=== PATIENT | female | born 1965 | race Caucasian/White ===

== ENCOUNTER 2018-01-22 19:42 | Emergency (ER) | payer MEDICAID ==
[2013-07-30 15:02] VITALS: BMI 28.4
[~2018-01-22 19:42] MED LIST: NORCO 10/325 TA1 TA1
== END 2018-01-22 21:54 | disposition home or self-care (01) ==
LOC: D.ER 19:42
DX: K02.9 Dental caries, unspecified (principal); K08.89 Other specified disorders of teeth and supporting structures; K04.7 Periapical abscess without sinus

== ENCOUNTER 2018-12-11 19:00 | Outpatient (CLI) | payer MEDICAID ==
[2013-07-30 15:02] VITALS: BMI 28.4
== END 2018-12-11 23:59 | disposition home or self-care (01) ==
LOC: D.MAMMO 19:00
PROVIDERS: ATTEND General Practice
DX: Z12.31 Encounter for screening mammogram for malignant neoplasm of breast (principal)

== ENCOUNTER 2020-12-22 02:55 | Emergency (ER) | payer BC ==
[~2020-12-22] VITALS: Ht 160 cm; Wt 71.8 kg
[2020-12-22 02:59] VITALS: Ht 160 cm; Wt 71.8 kg
[2020-12-22 03:16] LABS: BASOPHILS 0.4 % (0-2); EOSINOPHILS 2.1 % (0-7); HEMATOCRIT 42.6 % (36.0-48.0); HEMOGLOBIN 14.6 g/dL (12-16); IMMATURE GRANULOCYTES 0.4 % (0-5); LYMPHOCYTE ABS# 2.07 10x3/uL (1.18-3.74); LYMPHOCYTES 27.6 % (15-50); MCHC 34.3 g/dL (31.0-37.0); MCV 84.7 fL (80.0-100.0); MEAN PLATELET VOLUME 10.5 fL (7.4-10.4); MONOCYTES 6.8 % (2-11); NEUTROPHIL ABS# 4.71 10x3/uL (1.56-6.13); NEUTROPHILS 62.7 % (40-80); RBC 5.03 10x6/uL (4.00-5.40); RDW 14.2 % (11.5-14.5); WBC 7.5 10x3/uL (4.8-10.8)
[2020-12-22 03:18] LABS: PLATELET COUNT 203 10x3/uL (130-400)
[2020-12-22 03:22] LABS: CALC OSMOLALITY 288 mosm/kg (275-300); CALCIUM 9.2 mg/dL (8.5-10.1); CARBON DIOXIDE 26.4 mmol/L (21.0-32.0); CHLORIDE - SERUM 102 mmol/L (98-107); POTASSIUM - SERUM 3.3 mmol/L (3.5-5.1); SODIUM 136 mmol/L (136-145); UREA NITROGEN 36 mg/dL (7-18); eGFR NON AFRICAN AMERICAN 28 mL/min (90-120)
[2020-12-22 03:24] LABS: APTT 28.4 SECONDS (22.8-39.4); INR 1.03 (0.85-1.17); PROTIME 12.5 SECONDS (11.6-15.0)
[2020-12-22 03:25] LABS: D-DIMER-QUANTITATIVE 0.38 ug/mLFEU (0.20-0.54); GLUCOSE 264 mg/dL (74-106)
[2020-12-22] MEDS ORDERED: REQUIP3 MG PO (03:26)
[2020-12-22] MEDS ORDERED: CYCLOBENZAPRINE5 MG PO (03:26)
[2020-12-22] MEDS ORDERED: COZAAR100 MG PO (03:26)
[2020-12-22] MEDS ORDERED: VOLTAREN25 MG PO (03:29)
[2020-12-22 03:37] LABS: ALBUMIN 3.7 g/dL (3.4-5.0); ALKALINE PHOSPHATASE 86 U/L (30-120); ALT (SGPT) 43 U/L (10-68); BILIRUBIN - TOTAL 0.53 mg/dL (0.2-1.3); CKMB 0.7 U/L (0.0-3.6); CREATINE KINASE 43 UL (21-215); MAGNESIUM - SERUM 2.2 mg/dL (1.8-2.4); PROTEIN - SERUM 6.7 g/dL (6.4-8.2)
[2020-12-22 03:38] LABS: TROPONIN-I < 0.017 ng/mL (0.000-0.060)
[2020-12-22] MEDS ORDERED: PEPCID40 MG PO (03:39)
[2020-12-22 03:54] LABS: UDS - AMPHET POSITIVE QUAL (NEGATIVE); UDS - BARB NEGATIVE QUAL (NEGATIVE); UDS - BENZO NEGATIVE QUAL (NEGATIVE); UDS - COCAINE NEGATIVE QUAL (NEGATIVE); UDS - OPIATE NEGATIVE QUAL (NEGATIVE); UDS - PCP NEGATIVE QUAL (NEGATIVE); UDS - THC NEGATIVE QUAL (NEGATIVE)
[2020-12-22 03:55] LABS: AMORPHOUS SEDIMENT >1+ LPF (NONE SEEN); BILIRUBIN 1+ (NEGATIVE); KETONE SMALL mg/dL (NEGATIVE); NITRITE NEGATIVE (NEGATIVE); UROBILINOGEN NORMAL mg/dL (< 2)
[2020-12-22 03:56] LABS: WHITE CELLS - URINE 0-5 HPF (0-4)
[2020-12-22 05:48] VITALS: BP 94/58
[2020-12-22] MEDS ORDERED: CARAFATE1 G PO (19:40)
[2020-12-22] MEDS ORDERED: BENTYL10 MG PO (19:40)
[2020-12-22] MEDS ORDERED: ZOFRAN ODT4 MG/UDTAB PO (19:40)
[2020-12-22] MEDS ORDERED: CHRONULAC30 ML PO (19:40)
== END 2020-12-22 05:48 | disposition home or self-care (01) ==
LOC: D.ER 02:55
PROVIDERS: Family Medicine
DX: R07.9 Chest pain, unspecified (principal); I10 Essential (primary) hypertension; N28.9 Disorder of kidney and ureter, unspecified; J44.9 Chronic obstructive pulmonary disease, unspecified

== ENCOUNTER 2020-12-22 16:49 | Emergency (ER) | payer BC ==
[~2020-12-22] VITALS: Ht 160 cm; Wt 71.8 kg
[~2020-12-22 16:49] MED LIST changes: +COZAAR100 MG PO; +CYCLOBENZAPRINE5 MG PO; +PEPCID40 MG PO; +REQUIP3 MG PO; +VOLTAREN25 MG PO
[2020-12-22 16:54] VITALS: Ht 160 cm; Wt 71.8 kg
[2020-12-22 18:13] LABS: BASOPHILS 0.6 % (0-2); EOSINOPHILS 2.3 % (0-7); HEMATOCRIT 43.1 % (36.0-48.0); HEMOGLOBIN 14.8 g/dL (12-16); IMMATURE GRANULOCYTES 0.2 % (0-5); LYMPHOCYTE ABS# 1.41 10x3/uL (1.18-3.74); LYMPHOCYTES 27.2 % (15-50); MCH 28.7 pg (26.0-34.0); MCHC 34.3 g/dL (31.0-37.0); MCV 83.7 fL (80.0-100.0); MEAN PLATELET VOLUME 11.1 fL (7.4-10.4); MONOCYTES 7.5 % (2-11); NEUTROPHIL ABS# 3.22 10x3/uL (1.56-6.13); NEUTROPHILS 62.2 % (40-80); PLATELET COUNT 183 10x3/uL (130-400); RBC 5.15 10x6/uL (4.00-5.40); RDW 14.1 % (11.5-14.5)
[2020-12-22 18:15] LABS: WBC 5.2 10x3/uL (4.8-10.8)
[2020-12-22 18:27] LABS: CALC OSMOLALITY 290 mosm/kg (275-300); CALCIUM 9.1 mg/dL (8.5-10.1); CARBON DIOXIDE 25.9 mmol/L (21.0-32.0); CHLORIDE - SERUM 105 mmol/L (98-107); CREATININE - SERUM 1.5 mg/dL (0.6-1.3); GLUCOSE 244 mg/dL (74-106); POTASSIUM - SERUM 3.4 mmol/L (3.5-5.1); SODIUM 138 mmol/L (136-145); UREA NITROGEN 32 mg/dL (7-18); eGFR NON AFRICAN AMERICAN 38 mL/min (90-120)
[2020-12-22 18:35] LABS: ALBUMIN 3.6 g/dL (3.4-5.0); ALKALINE PHOSPHATASE 72 U/L (30-120); ALT (SGPT) 44 U/L (10-68); AMYLASE - SERUM 54 U/L (25-115); BILIRUBIN - TOTAL 0.48 mg/dL (0.2-1.3); LIPASE 347 U/L (73-393); PROTEIN - SERUM 6.6 g/dL (6.4-8.2)
[2020-12-22 18:42] LABS: TROPONIN-I < 0.017 ng/mL (0.000-0.060)
[2020-12-22 19:14] LABS: NITRITE NEGATIVE (NEGATIVE)
[2020-12-22 19:25] LABS: BILIRUBIN NEGATIVE (NEGATIVE); KETONE NEGATIVE (NEGATIVE); UROBILINOGEN NORMAL mg/dL (< 2)
[2020-12-22 19:27] LABS: BACTERIA MODERATE HPF (NONE SEEN)
[2020-12-22] MEDS ORDERED: CARAFATE1 G PO (19:40)
[2020-12-22] MEDS ORDERED: CHRONULAC30 ML PO (19:40)
[2020-12-22] MEDS ORDERED: BENTYL10 MG PO (19:40)
[2020-12-22] MEDS ORDERED: ZOFRAN ODT4 MG/UDTAB PO (19:40)
[2020-12-22 21:06] VITALS: BP 109/67
== END 2020-12-22 21:06 | disposition home or self-care (01) ==
LOC: D.ER 16:49
PROVIDERS: Emergency Medicine
DX: R10.9 Unspecified abdominal pain (principal); K59.00 Constipation, unspecified; E87.6 Hypokalemia; R73.9 Hyperglycemia, unspecified; J44.9 Chronic obstructive pulmonary disease, unspecified; Z72.0 Tobacco use

== ENCOUNTER 2020-12-26 17:03 | Emergency (ER) | payer BC ==
[~2020-12-26] VITALS: Ht 160 cm; Wt 71.8 kg
[~2020-12-26 17:03] MED LIST changes: +BENTYL10 MG PO; +CARAFATE1 G PO; +CHRONULAC30 ML PO; +ZOFRAN ODT4 MG/UDTAB PO
[2020-12-26 17:06] VITALS: BP 131/84; Ht 160 cm; Wt 71.8 kg
[2020-12-26 17:16] LABS: BASOPHILS 0.2 % (0-2); HEMATOCRIT 45.7 % (36.0-48.0); HEMOGLOBIN 15.4 g/dL (12-16); IMMATURE GRANULOCYTES 0.4 % (0-5); LYMPHOCYTE ABS# 1.76 10x3/uL (1.18-3.74); LYMPHOCYTES 21.1 % (15-50); MCH 28.9 pg (26.0-34.0); MCHC 33.7 g/dL (31.0-37.0); MCV 85.9 fL (80.0-100.0); MEAN PLATELET VOLUME 11.5 fL (7.4-10.4); MONOCYTES 7.5 % (2-11); NEUTROPHIL ABS# 5.83 10x3/uL (1.56-6.13); NEUTROPHILS 69.8 % (40-80); PLATELET COUNT 207 10x3/uL (130-400); RBC 5.32 10x6/uL (4.00-5.40); RDW 13.9 % (11.5-14.5); WBC 8.4 10x3/uL (4.8-10.8)
[2020-12-26 17:26] LABS: CALCIUM 10.1 mg/dL (8.5-10.1); CARBON DIOXIDE 29.8 mmol/L (21.0-32.0); CREATININE - SERUM 1.5 mg/dL (0.6-1.3); POTASSIUM - SERUM 3.8 mmol/L (3.5-5.1)
[2020-12-26 17:32] LABS: ALBUMIN 3.8 g/dL (3.4-5.0); BILIRUBIN - TOTAL 0.49 mg/dL (0.2-1.3)
[2020-12-26] MEDS ORDERED: AUVI-Q0.3 MG/0.3 IM (18:05)
[2020-12-26] MEDS ORDERED: MEDROL DOSE PACK4 MG PO (18:05)
[2020-12-26] MEDS ORDERED: BENADRYL50 MG PO (18:06)
== END 2020-12-26 18:59 | disposition home or self-care (01) ==
LOC: D.ER 17:03
PROVIDERS: Family Medicine
DX: R06.02 Shortness of breath (principal); T50.905A Adverse effect of unspecified drugs, medicaments and biological substances, initial encounter; J44.9 Chronic obstructive pulmonary disease, unspecified; Z72.0 Tobacco use; R22.0 Localized swelling, mass and lump, head

== ENCOUNTER 2021-01-03 05:03 | Inpatient (IN) | payer BC ==
[~2021-01-03] VITALS: Ht 160 cm; Wt 71.7 kg
[~2021-01-03 05:03] MED LIST changes: +AUVI-Q0.3 MG/0.3 IM; +BENADRYL50 MG PO; +MEDROL DOSE PACK4 MG PO
[2021-01-03 05:51] LABS: BASOPHILS 0.5 % (0-2); EOSINOPHILS 2.2 % (0-7); HEMATOCRIT 42.9 % (36.0-48.0); HEMOGLOBIN 14.7 g/dL (12-16); IMMATURE GRANULOCYTES 0.3 % (0-5); LYMPHOCYTE ABS# 2.62 10x3/uL (1.18-3.74); LYMPHOCYTES 27.5 % (15-50); MCHC 34.3 g/dL (31.0-37.0); MCV 84.6 fL (80.0-100.0); MEAN PLATELET VOLUME 11.6 fL (7.4-10.4); MONOCYTES 9.2 % (2-11); NEUTROPHIL ABS# 5.74 10x3/uL (1.56-6.13); NEUTROPHILS 60.3 % (40-80); RBC 5.07 10x6/uL (4.00-5.40); RDW 13.8 % (11.5-14.5); WBC 9.5 10x3/uL (4.8-10.8)
[2021-01-03 05:52] LABS: PLATELET COUNT 271 10x3/uL (130-400)
[2021-01-03 05:56] LABS: CALC OSMOLALITY 283 mosm/kg (275-300); CALCIUM 10.2 mg/dL (8.5-10.1); CARBON DIOXIDE 28.1 mmol/L (21.0-32.0); CHLORIDE - SERUM 100 mmol/L (98-107); CREATININE - SERUM 1.6 mg/dL (0.6-1.3); POTASSIUM - SERUM 3.6 mmol/L (3.5-5.1); SODIUM 135 mmol/L (136-145); UREA NITROGEN 27 mg/dL (7-18); eGFR NON AFRICAN AMERICAN 36 mL/min (90-120)
[2021-01-03 05:58] LABS: GLUCOSE 269 mg/dL (74-106)
[2021-01-03 06:05] LABS: ALBUMIN 3.6 g/dL (3.4-5.0); ALKALINE PHOSPHATASE 78 U/L (30-120); ALT (SGPT) 42 U/L (10-68); BILIRUBIN - TOTAL 0.52 mg/dL (0.2-1.3); CREATINE KINASE 19 UL (21-215); LIPASE 414 U/L (73-393); MAGNESIUM - SERUM 1.9 mg/dL (1.8-2.4); PROTEIN - SERUM 6.7 g/dL (6.4-8.2)
[2021-01-03 06:05] LABS: UDS - AMPHET POSITIVE QUAL (NEGATIVE); UDS - BARB NEGATIVE QUAL (NEGATIVE); UDS - BENZO NEGATIVE QUAL (NEGATIVE); UDS - COCAINE NEGATIVE QUAL (NEGATIVE); UDS - OPIATE NEGATIVE QUAL (NEGATIVE); UDS - PCP NEGATIVE QUAL (NEGATIVE); UDS - THC NEGATIVE QUAL (NEGATIVE)
[2021-01-03 06:12] LABS: BILIRUBIN 2+ (NEGATIVE); KETONE NEGATIVE (NEGATIVE); NITRITE NEGATIVE (NEGATIVE); UROBILINOGEN NORMAL mg/dL (< 2)
[2021-01-03 06:13] LABS: AMORPHOUS SEDIMENT MANY LPF (NONE SEEN)
[2021-01-03 06:17] LABS: TROPONIN-I < 0.017 ng/mL (0.000-0.060)
[2021-01-03 06:29] VITALS: BP 87/53
[2021-01-03 06:49] VITALS: BP 101/56
[2021-01-03] MEDS ORDERED: OMNICEF300 MG PO (07:00)
[2021-01-03 10:26] VITALS: BP 95/63; BMI 28.0
--- NOTE | 2021-01-03 10:30 | NUR ---
ASSESSMENT PER FLOW SHEET. PATIENT IS WITHOUT DISTRESS.ORIENTATION TO ROOM AND CALL LIGHT . SCD'S AND INCENTIVE SPIROMETRY PER MARGAUX. CALL LIGHT IN REACH
--- NOTE | 2021-01-03 10:30 | NUR ---
3185 RECEIVED PT FROM ER VIA WHEELCHAIR SCDS PLACED ON INSTRUCTIVE ON IS USE PERFORMED WELL PULLING [id number]
--- NOTE | 2021-01-03 13:37 | NUR ---
1200 CLEAR LIQUIS DIET SERVED APPETITE FAIR
--- NOTE | 2021-01-03 17:57 | NUR ---
1400 PATIENT REFUSES TO USE INCENTIVE SPIROMETER AFTER HER FIRST TIME. SAYS IT MAKES HER SOB. EDUCATATED PT ON PURPOSE OF IS AND THE BENEFITS OF USE SHE STILL REFUSED TO PERFORM Q2 HR
--- NOTE | 2021-01-03 18:37 | NUR ---
1600 FRIEND PRESENT PATIENT WANTED TO WALK AROUND NURSING STATION WHEN SHE GOT TO HER DOOR SHE STATED HER HEAD BEGAN TO HURT AND RETULLRNED TO HER BED. THIS AM SHE REFUSED HER NICOTINE PATCH
[2021-01-03 20:00] VITALS: BP 120/75
--- NOTE | 2021-01-03 20:47 | NUR ---
SITED 2ND IV DUE TO OCCLUSION ALARMS DUE TO AC IV. PLACED 20 GUAGE TO LEFT WRIST IN ONE STICK. IV FLUIDS RE-STARTED TO NEW SITE. GAVE ZOFRAN 4 MG IVP PER PT REQUEST FOR NAUSEA.
[2021-01-04] VITALS: BP 107/63
[2021-01-04 04:00] VITALS: BP 91/53
[2021-01-04 09:05] LABS: BASOPHILS 0.3 % (0-2); EOSINOPHILS 3.8 % (0-7); HEMATOCRIT 34.6 % (36.0-48.0); IMMATURE GRANULOCYTES 0.6 % (0-5); LYMPHOCYTE ABS# 1.14 10x3/uL (1.18-3.74); LYMPHOCYTES 33.6 % (15-50); MCH 28.2 pg (26.0-34.0); MCHC 32.9 g/dL (31.0-37.0); MCV 85.6 fL (80.0-100.0); MEAN PLATELET VOLUME 10.8 fL (7.4-10.4); MONOCYTES 10.6 % (2-11); NEUTROPHIL ABS# 1.73 10x3/uL (1.56-6.13); NEUTROPHILS 51.1 % (40-80); RDW 13.5 % (11.5-14.5)
[2021-01-04 09:07] LABS: HEMOGLOBIN 11.4 g/dL (12-16); PLATELET COUNT 174 10x3/uL (130-400); RBC 4.04 10x6/uL (4.00-5.40); WBC 3.4 10x3/uL (4.8-10.8)
[2021-01-04 09:22] LABS: ANION GAP 10.2 mmol/L (8-16); BILIRUBIN - TOTAL 0.41 mg/dL (0.2-1.3); CALCIUM 8.3 mg/dL (8.5-10.1); CARBON DIOXIDE 26.6 mmol/L (21.0-32.0); POTASSIUM - SERUM 3.8 mmol/L (3.5-5.1)
[2021-01-04 09:29] LABS: ALBUMIN 2.6 g/dL (3.4-5.0); CREATININE - SERUM 1.1 mg/dL (0.6-1.3); PROTEIN - SERUM 4.7 g/dL (6.4-8.2)
[2021-01-04 10:41] VITALS: BP 105/64
[2021-01-04 13:52] VITALS: Ht 160 cm; Wt 71.7 kg
--- NOTE | 2021-01-04 15:00 | NUR ---
I have reviewed this patient and I concur with the Shift Assessment completed by the Licensed Practical Nurse today this shift.
[2021-01-04 15:25] VITALS: BP 105/64
[2021-01-04 18:35] VITALS: BP 103/64
[2021-01-04 20:00] VITALS: BP 104/72
[2021-01-05] VITALS: BP 113/72
[2021-01-05 04:00] VITALS: BP 118/66; BP 86/35
[2021-01-05 06:09] LABS: BASOPHILS 0.2 % (0-2); EOSINOPHILS 2.2 % (0-7); HEMOGLOBIN 11.3 g/dL (12-16); IMMATURE GRANULOCYTES 0.5 % (0-5); LYMPHOCYTE ABS# 1.28 10x3/uL (1.18-3.74); LYMPHOCYTES 30.6 % (15-50); MCH 28.3 pg (26.0-34.0); MCHC 33.2 g/dL (31.0-37.0); MCV 85.2 fL (80.0-100.0); MONOCYTES 6.7 % (2-11); NEUTROPHILS 59.8 % (40-80); PLATELET COUNT 179 10x3/uL (130-400); RBC 3.99 10x6/uL (4.00-5.40); RDW 13.2 % (11.5-14.5); WBC 4.2 10x3/uL (4.8-10.8)
[2021-01-05 06:28] LABS: ALBUMIN 2.4 g/dL (3.4-5.0); BILIRUBIN - TOTAL 0.31 mg/dL (0.2-1.3); CALCIUM 8.3 mg/dL (8.5-10.1); CARBON DIOXIDE 23.5 mmol/L (21.0-32.0); CREATININE - SERUM 0.9 mg/dL (0.6-1.3); POTASSIUM - SERUM 3.5 mmol/L (3.5-5.1); PROTEIN - SERUM 4.8 g/dL (6.4-8.2)
[2021-01-05 08:50] VITALS: BP 119/76
[2021-01-05] MEDS ORDERED: NICODERM CQ1 EAC3 TRANSDERM (10:58)
[2021-01-05] MEDS ORDERED: FLAGYL500 MG PO (10:59)
[2021-01-05] MEDS ORDERED: LEVOFLOXACIN500 MG PO (10:59)
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
--- NOTE | 2021-01-05 13:01 | NUR ---
I have reviewed this patient and I concur with the Shift Assessment completed by the Licensed Practical Nurse today this shift.
[2021-01-05 13:21] VITALS: BP 105/77
--- NOTE | 2021-01-05 14:36 | NUR ---
DC HOME AT THIS TIME WITH ALL PERSONAL BELONGING. VOICES UNDERSTANDING OF DC ORDERS. NO C/O NOTED OR VOICED. STABLE CONDITION UPON DC.
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
== END 2021-01-05 14:52 | disposition home or self-care (01) | DRG 392 ==
LOC: D.ER 05:03 → D.MS 08:24
PROVIDERS: Family Medicine; ADMIT Family Medicine; ATTEND Family Medicine
DX: K57.92 Diverticulitis of intestine, part unspecified, without perforation or abscess without bleeding (principal); N17.9 Acute kidney failure, unspecified; N39.0 Urinary tract infection, site not specified; E87.1 Hypo-osmolality and hyponatremia; R73.9 Hyperglycemia, unspecified; E83.52 Hypercalcemia; J44.9 Chronic obstructive pulmonary disease, unspecified; Z72.0 Tobacco use; F15.10 Other stimulant abuse, uncomplicated

== ENCOUNTER 2021-01-19 16:53 | Inpatient (IN) | payer BC ==
[~2021-01-19] VITALS: Ht 160 cm; Wt 72.6 kg
[2021-01-19] VITALS (8 sets, daily range): BP systolic 95–105; BP diastolic 55–74
[~2021-01-19 16:53] MED LIST changes: +FLAGYL500 MG PO; +LEVOFLOXACIN500 MG PO; +NICODERM CQ1 EAC3 TRANSDERM; +OMNICEF300 MG PO
[2021-01-19 17:32] LABS: BASOPHILS 0.3 % (0-2); HEMATOCRIT 42.2 % (36.0-48.0); HEMOGLOBIN 14.4 g/dL (12-16); IMMATURE GRANULOCYTES 0.3 % (0-5); LYMPHOCYTE ABS# 0.84 10x3/uL (1.18-3.74); LYMPHOCYTES 9.5 % (15-50); MCH 28.7 pg (26.0-34.0); MCHC 34.1 g/dL (31.0-37.0); MCV 84.1 fL (80.0-100.0); MONOCYTES 8.7 % (2-11); NEUTROPHIL ABS# 7.07 10x3/uL (1.56-6.13); NEUTROPHILS 80.2 % (40-80); PLATELET COUNT 212 10x3/uL (130-400); RBC 5.02 10x6/uL (4.00-5.40); RDW 14.1 % (11.5-14.5); WBC 8.8 10x3/uL (4.8-10.8)
[2021-01-19 17:41] LABS: CALC OSMOLALITY 286 mosm/kg (275-300); CALCIUM 9.7 mg/dL (8.5-10.1); CARBON DIOXIDE 25.5 mmol/L (21.0-32.0); CHLORIDE - SERUM 102 mmol/L (98-107); CREATININE - SERUM 1.5 mg/dL (0.6-1.3); POTASSIUM - SERUM 3.2 mmol/L (3.5-5.1); SODIUM 138 mmol/L (136-145); UREA NITROGEN 21 mg/dL (7-18); eGFR NON AFRICAN AMERICAN 38 mL/min (90-120)
[2021-01-19 17:48] LABS: GLUCOSE 234 mg/dL (74-106)
[2021-01-19 17:49] LABS: ALBUMIN 3.5 g/dL (3.4-5.0); ALKALINE PHOSPHATASE 97 U/L (30-120); ALT (SGPT) 60 U/L (10-68); BILIRUBIN - TOTAL 0.81 mg/dL (0.2-1.3); LIPASE 238 U/L (73-393); PROTEIN - SERUM 6.7 g/dL (6.4-8.2)
[2021-01-19 17:50] LABS: TROPONIN-I < 0.017 ng/mL (0.000-0.060)
[2021-01-19 18:24] LABS: BILIRUBIN NEGATIVE (NEGATIVE); KETONE NEGATIVE (NEGATIVE); NITRITE NEGATIVE (NEGATIVE); UROBILINOGEN NORMAL mg/dL (< 2)
[2021-01-19 18:25] LABS: SQUAMOUS EPITHELIAL 0-5 HPF (0-4); WHITE CELLS - URINE 0-5 HPF (0-4)
[2021-01-19 18:26] LABS: BACTERIA FEW HPF (NONE SEEN)
--- NOTE | 2021-01-19 20:50 | NUR ---
REPORT CALLED TO [facility] ON [facility]. BED IS STILL DIRTY. WILL CALL WHEN CLEAN
--- NOTE | 2021-01-19 21:30 | NUR ---
PATIENT UP TO BATHROOM. HAD BM.NO DISTRESS. CALLED MED SURG. BED STILL DIRTY
--- NOTE | 2021-01-19 22:30 | NUR ---
CALLED [facility] BED STILL DIRTY. PATIENT RESTING COMFORTABLE AFTER MORPHINE GIVEN FOR ABDOMINAL PAIN
[2021-01-20] VITALS (7 sets, daily range): BP systolic 92–104; BP diastolic 52–69; BMI 28.4
[2021-01-20 07:21] LABS: BASOPHILS 0.3 % (0-2); EOSINOPHILS 0.8 % (0-7); HEMATOCRIT 38.2 % (36.0-48.0); HEMOGLOBIN 12.8 g/dL (12-16); IMMATURE GRANULOCYTES 0.3 % (0-5); LYMPHOCYTE ABS# 0.99 10x3/uL (1.18-3.74); LYMPHOCYTES 12.9 % (15-50); MCH 28.3 pg (26.0-34.0); MCHC 33.5 g/dL (31.0-37.0); MCV 84.5 fL (80.0-100.0); MEAN PLATELET VOLUME 11.3 fL (7.4-10.4); MONOCYTES 8.2 % (2-11); NEUTROPHIL ABS# 5.93 10x3/uL (1.56-6.13); NEUTROPHILS 77.5 % (40-80); PLATELET COUNT 186 10x3/uL (130-400); RBC 4.52 10x6/uL (4.00-5.40); RDW 14.1 % (11.5-14.5); WBC 7.7 10x3/uL (4.8-10.8)
--- NOTE | 2021-01-20 07:31 | NUR ---
PATIENT IS SLEEPING WITHOUT NEEDS.CALL LIGHT IN REACH
[2021-01-20 07:34] LABS: ALBUMIN 2.9 g/dL (3.4-5.0); ANION GAP 11.9 mmol/L (8-16); BILIRUBIN - TOTAL 0.68 mg/dL (0.2-1.3); CALCIUM 8.9 mg/dL (8.5-10.1); CARBON DIOXIDE 26.7 mmol/L (21.0-32.0); PHOSPHOROUS 2.9 mg/dL (2.5-4.9); POTASSIUM - SERUM 3.6 mmol/L (3.5-5.1)
[2021-01-20 07:35] LABS: CREATININE - SERUM 1.1 mg/dL (0.6-1.3)
--- NOTE | 2021-01-20 07:58 | NUR ---
PATIENT ASLEEP IN BED EASILY AWAKENED FOR ASSESSMENT, ACTIVE BOWEL SOUNDS, PATIENT REPORTS A LITTLE TENDERNESS, RA, IV IN LEFT AC NS AT 175, SITE IS CDI, PT REQUESTS PAIN MEDICATION, TOLD HER I WILL BRING IT IN SOON IT IS TIME. NO OTHER NEEDS AT THIS MOMENT. CONTINUE WITH PLAN OF CARE
--- NOTE | 2021-01-21 03:47 | NUR ---
PATIENT COMPLAINED OF A HEADACHE THAT WAS MANAGED WITH THE PRESCRIBED TYLENOL, SHE APPEARS TO BE RESTING COMFORTABLY WITH HER EYES CLOSED.
[2021-01-21 04:00] VITALS: BP 105/65
[2021-01-21 06:22] LABS: BASOPHILS 0.2 % (0-2); EOSINOPHILS 1.1 % (0-7); HEMATOCRIT 34.6 % (36.0-48.0); HEMOGLOBIN 11.5 g/dL (12-16); IMMATURE GRANULOCYTES 0.3 % (0-5); LYMPHOCYTE ABS# 0.94 10x3/uL (1.18-3.74); LYMPHOCYTES 15.2 % (15-50); MCHC 33.2 g/dL (31.0-37.0); MCV 84.4 fL (80.0-100.0); MEAN PLATELET VOLUME 11.4 fL (7.4-10.4); MONOCYTES 9.5 % (2-11); NEUTROPHIL ABS# 4.57 10x3/uL (1.56-6.13); NEUTROPHILS 73.7 % (40-80); PLATELET COUNT 158 10x3/uL (130-400); RDW 13.5 % (11.5-14.5); WBC 6.2 10x3/uL (4.8-10.8)
[2021-01-21 06:50] LABS: ALBUMIN 2.6 g/dL (3.4-5.0); ANION GAP 13.9 mmol/L (8-16); BILIRUBIN - TOTAL 0.66 mg/dL (0.2-1.3); CALCIUM 8.4 mg/dL (8.5-10.1); MAGNESIUM - SERUM 1.8 mg/dL (1.8-2.4); PHOSPHOROUS 2.3 mg/dL (2.5-4.9); POTASSIUM - SERUM 3.9 mmol/L (3.5-5.1)
--- NOTE | 2021-01-21 07:07 | NUR ---
SLEEPING,WITHOUT DISTRESS.CALL LIGHT IN REACH
[2021-01-21 09:18] VITALS: BP 100/62
[2021-01-21 12:37] VITALS: BP 98/66
[2021-01-21 13:30] VITALS: Ht 160 cm; Wt 72.6 kg
--- NOTE | 2021-01-21 13:34 | NUR ---
PATIENT ORDERED SMOOTH STUCCO RESURFACER FOR PAIN CONTROL. STARTED MORPHINE SMOOTH STUCCO RESURFACER PLACED [place] HAT IN RESTROOM TO COLLECT URINE ORDERED, NO OTHER NEEDS VOICED BY PATIENT. CONTINUE WITH PLAN OF CARE
[2021-01-21 16:46] VITALS: BP 96/63
[2021-01-21 20:00] VITALS: BP 90/57
[2021-01-22] VITALS: BP 95/54
--- NOTE | 2021-01-22 00:30 | NUR ---
PT IN BED RESTING WITH EYES CLOSED. NO NEEDS EXPRESS AT THE MOMENT, WILL CONT TO MONITOR.
[2021-01-22 03:33] LABS: BILIRUBIN NEGATIVE (NEGATIVE); KETONE NEGATIVE (NEGATIVE); NITRITE NEGATIVE (NEGATIVE); UROBILINOGEN NORMAL mg/dL (< 2)
[2021-01-22 03:34] LABS: BACTERIA NONE SEEN HPF (NONE SEEN); SQUAMOUS EPITHELIAL 0-5 HPF (0-4); WHITE CELLS - URINE 0-5 HPF (0-4)
[2021-01-22 04:00] VITALS: BP 97/60
[2021-01-22 06:31] LABS: ALBUMIN 2.4 g/dL (3.4-5.0); ANION GAP 13.5 mmol/L (8-16); BILIRUBIN - TOTAL 0.57 mg/dL (0.2-1.3); CALCIUM 8.3 mg/dL (8.5-10.1); CARBON DIOXIDE 25.2 mmol/L (21.0-32.0); CREATININE - SERUM 0.9 mg/dL (0.6-1.3); MAGNESIUM - SERUM 1.8 mg/dL (1.8-2.4); PHOSPHOROUS 2.6 mg/dL (2.5-4.9); POTASSIUM - SERUM 3.7 mmol/L (3.5-5.1); PROTEIN - SERUM 4.8 g/dL (6.4-8.2)
--- NOTE | 2021-01-22 07:02 | NUR ---
I have reviewed this patient and I concur with the Shift Assessment completed by the Licensed Practical Nurse today this shift.
[2021-01-22 08:21] LABS: BASOPHILS 0.3 % (0-2); EOSINOPHILS 0.6 % (0-7); HEMATOCRIT 34.5 % (36.0-48.0); HEMOGLOBIN 11.4 g/dL (12-16); IMMATURE GRANULOCYTES 0.3 % (0-5); LYMPHOCYTE ABS# 0.94 10x3/uL (1.18-3.74); LYMPHOCYTES 14.5 % (15-50); MCV 84.8 fL (80.0-100.0); MEAN PLATELET VOLUME 11.8 fL (7.4-10.4); MONOCYTES 9.4 % (2-11); NEUTROPHIL ABS# 4.86 10x3/uL (1.56-6.13); NEUTROPHILS 74.9 % (40-80); PLATELET COUNT 162 10x3/uL (130-400); RBC 4.07 10x6/uL (4.00-5.40); RDW 13.5 % (11.5-14.5); WBC 6.5 10x3/uL (4.8-10.8)
--- NOTE | 2021-01-22 09:11 | NUR ---
PATIENT IS REFUSING LABS THIS MORNING STATE HE IS BEING DC CLAIMS COUNSEL IS ELEVATED WILL SEE IF PATIENT WILL AT LEAST TAKE MEDICATIIONS. CONTINUE WITH PLAN OF CARE
[2021-01-22 09:41] VITALS: BP 95/59
--- NOTE | 2021-01-22 10:20 | NUR ---
PATIENT LAYING IN BED C/O NAUSEA, BOLUS ORDERED PT BP IS 95/54 THIS MORNING, NO OTHER NEEDS VOICED AT THIS TIME. COTNINUE WITH PLAN OF CARE
[2021-01-22 12:58] VITALS: BP 103/66
--- NOTE | 2021-01-22 13:25 | NUR ---
Nutrition follow-up: Diet advanced to full liquids today by PCP Pt c/o nausea with poor po intake labs reviewed Wt: 160# Recommend starting ProcalAmine PPN @ 100 ml/hr if pt continues with nausea. RDN follow-up/reassessment: 01/25/21
--- NOTE | 2021-01-22 14:25 | NUR ---
PATIENT IS WITHOUT NEEDS.CALL LIGHT IN REACH
--- NOTE | 2021-01-22 16:04 | NUR ---
I have reviewed this patient and I concur with the Shift Assessment completed by the Licensed Practical Nurse today this shift.
[2021-01-22 17:29] VITALS: BP 111/69
[2021-01-22 21:12] VITALS: BP 97/62
[2021-01-23 01:14] VITALS: BP 128/79
[2021-01-23 05:56] VITALS: BP 122/71
[2021-01-23 06:22] LABS: BASOPHILS 0.2 % (0-2); EOSINOPHILS 2.3 % (0-7); HEMATOCRIT 32.6 % (36.0-48.0); IMMATURE GRANULOCYTES 1.2 % (0-5); LYMPHOCYTE ABS# 0.87 10x3/uL (1.18-3.74); LYMPHOCYTES 20.1 % (15-50); MCH 27.8 pg (26.0-34.0); MCHC 33.7 g/dL (31.0-37.0); MEAN PLATELET VOLUME 11.5 fL (7.4-10.4); MONOCYTES 7.9 % (2-11); NEUTROPHIL ABS# 2.95 10x3/uL (1.56-6.13); NEUTROPHILS 68.3 % (40-80); PLATELET COUNT 181 10x3/uL (130-400); RBC 3.95 10x6/uL (4.00-5.40); RDW 13.3 % (11.5-14.5)
[2021-01-23 06:34] LABS: MCV 82.5 fL (80.0-100.0); WBC 4.3 10x3/uL (4.8-10.8)
[2021-01-23 06:40] LABS: ALBUMIN 2.4 g/dL (3.4-5.0); ALKALINE PHOSPHATASE 76 U/L (30-120); ALT (SGPT) 31 U/L (10-68); BILIRUBIN - TOTAL 0.32 mg/dL (0.2-1.3); CALC OSMOLALITY 281 mosm/kg (275-300); CALCIUM 8.6 mg/dL (8.5-10.1); CARBON DIOXIDE 25.4 mmol/L (21.0-32.0); CHLORIDE - SERUM 108 mmol/L (98-107); CREATININE - SERUM 0.8 mg/dL (0.6-1.3); GLUCOSE 116 mg/dL (74-106); PHOSPHOROUS 1.9 mg/dL (2.5-4.9); POTASSIUM - SERUM 3.2 mmol/L (3.5-5.1); PROTEIN - SERUM 5.2 g/dL (6.4-8.2); SODIUM 142 mmol/L (136-145); UREA NITROGEN 7 mg/dL (7-18); eGFR NON AFRICAN AMERICAN 79 mL/min (90-120)
[2021-01-23 09:55] VITALS: BP 104/64
[2021-01-23 12:56] VITALS: BP 109/78
[2021-01-23 18:16] VITALS: BP 108/68
[2021-01-23 20:52] VITALS: BP 114/75
--- NOTE | 2021-01-24 00:54 | NUR ---
IV INFILTRATED TO L FOREARM. IV REMOVED CATHALON INTACT. IV STARTED TO R UPPER ARM- 20 GA X 1 ATTEMPT. Simon MCQUEEN RN
[2021-01-24 05:25] VITALS: BP 118/67
[2021-01-24 06:42] LABS: BASOPHILS 0.5 % (0-2); EOSINOPHILS 1.8 % (0-7); HEMATOCRIT 32.1 % (36.0-48.0); HEMOGLOBIN 10.7 g/dL (12-16); IMMATURE GRANULOCYTES 1.8 % (0-5); LYMPHOCYTE ABS# 1.23 10x3/uL (1.18-3.74); LYMPHOCYTES 32.4 % (15-50); MCH 27.6 pg (26.0-34.0); MCHC 33.3 g/dL (31.0-37.0); MCV 82.7 fL (80.0-100.0); MEAN PLATELET VOLUME 11.8 fL (7.4-10.4); MONOCYTES 8.4 % (2-11); NEUTROPHIL ABS# 2.09 10x3/uL (1.56-6.13); NEUTROPHILS 55.1 % (40-80); PLATELET COUNT 197 10x3/uL (130-400); RBC 3.88 10x6/uL (4.00-5.40); RDW 13.5 % (11.5-14.5); WBC 3.8 10x3/uL (4.8-10.8)
[2021-01-24 07:26] LABS: ALBUMIN 2.4 g/dL (3.4-5.0); BILIRUBIN - TOTAL 0.27 mg/dL (0.2-1.3); CALCIUM 8.9 mg/dL (8.5-10.1); CREATININE - SERUM 0.9 mg/dL (0.6-1.3); MAGNESIUM - SERUM 1.9 mg/dL (1.8-2.4); PROTEIN - SERUM 5.1 g/dL (6.4-8.2)
[2021-01-24 07:27] LABS: ANION GAP 12.7 mmol/L (8-16); PHOSPHOROUS 2.5 mg/dL (2.5-4.9); POTASSIUM - SERUM 3.7 mmol/L (3.5-5.1)
--- NOTE | 2021-01-24 09:30 | NUR ---
PATIENT LAYING IN BED. NO SIGNS OF DISTRESS, NO NEEDS VOICED, CALL LIGHT IN REACH. CONTINUE WITH PLAN OF CARE
[2021-01-24] MEDS ORDERED: MIRALAX17 GM PO (11:03)
[2021-01-24] MEDS ORDERED: FLAGYL500 MG PO (11:03)
[2021-01-24] MEDS ORDERED: LEVOFLOXACIN500 MG PO (11:03)
[2021-01-24 11:28] VITALS: BP 123/69
--- NOTE | 2021-01-24 12:58 | NUR ---
WENT OVER PATIENT DC PAPERWORK ANSWERED ALL QUESTIONS IV DC WITH STEVETHESWATI INTACT
--- NOTE | 2021-01-24 18:06 | MORECARE ---
CASE MANAGEMENT DISCHARGE SUMMARY PATIENT: HIRO ORTIZ UNIT: [id number] ADM DATE: 01/19/21 AGE: 55 : 69 SEX: F ROOM/BED: D.2231 AUTHOR: NELI AREVALO PHYSICIAN: REFERRING PHYSICIAN: HALEIGH TIMMONS MD DATE OF SERVICE: 01/24/21 Case Management Discharge Planning Summary COMMENTS ENTERED DATE: 01/24/21 18:03 CT COMMENT TYPE: Discharge Planning REVIEWER: Indio Maldonado CM met with patient to complete DC plan and to evaluate needs. Patient stated that she readmitted because stomach never stopped hurting. Patient stated that she was able to obtain her medications after last discharge and was able to keep her follow up appointments. Patient stated that she followed the dc instructions given to her. It appears that this readmission was due to an exacerbation of chronic diverticulitis. Patient lives independently with a friend. The patient identified her person to notify as her daughter, Jesusita Wheatley, . Patient stated that her home is safe and has electricity and running water. Patient stated that the home has 3/5 steps to enter and she is able to manage the steps without difficulty. Patient stated that she has no problems paying for medications and she fills her medications at [facility] on [address] [facility]. Patient stated that her primary care physician is Dr. Gaona. At discharge, the patient plans to return home and feels this is a safe discharge. CM discussed availability of home health, rehab services, and medical equipment. Patient declined HHS, SNF, IPR, and DME. Patient voiced no other needs at this time and is satisfied with DC plan. CM will continue to follow and will assist as needed with dc plans/needs. DCP REVIEW SUMMARY ANTICIPATED D/C DATE: 01/24/2021 EXPECTED LOS : 5 CASE STATUS: DCP Initiated INITIAL REVIEW: 01/19/2021 INITIAL REVIEWER: Indio Maldonado FINAL DISCHARGE DISPOSITION: : FINAL REVIEWER: FINAL REVIEW DATE: DCP Focus Questions & Answers DCP Evaluation QUESTION: ANSWER Patient's ability to cope with chronic illness : d. No chronic illness Would patient like to participate in any Care Coordination programs (if applicable): : Not applicable Mental health screen: : No mental health history DCP Re-evaluation QUESTION: ANSWER Patient and/or caregiver agree upon recommended discharge plan? : Yes Reassessment due to: : New discovery of admission to an acute inpatient facility within 30 days Patient's current cognitive status: : *Oriented to person, place, situation, time and present Patient gives permission to discuss discharge plans with: (name, relationship and number) : daughterJesusita, Functional screen assessment: : Basic needs can adequately be met by self Equipment needed for post hospitalization: : None Patient with capacity for self-care or can be cared for in same environment as prior to hospitalization? : Yes Physical environment modification needed / anticipated for discharge: : No Would patient like to participate in any Care Coordination programs (if applicable): : Not applicable PATIENT: HIRO ORTIZ ENCOUNTER: [id number] MEDICAL RECORD#: [id number] ADMISSION DATE: 01/19/2021 DISCHARGE DATE: 01/24/2021 ATTENDING MD: BETTY: AGE: 55 MARITAL STATUS: S DC PLAN ID: [id number] FACILITY: PRINTED ON: 01/24/21 18:06 CT All edits/amendments must be made on the electronic document DICTATION DATE: 01/24/211805 UNIVERSITY EXTENSION SPECIALIST: GONZALEZ 01/24/211805 RPT#: [id number] DC DATE:01/24/21 STATUS: DIS IN [address] [place] [address] END OF REPORT
== END 2021-01-24 13:07 | disposition home or self-care (01) | DRG 392 ==
LOC: D.ER 16:53 → D.MS 20:28
PROVIDERS: Family Medicine; ADMIT Family Medicine; ATTEND Family Medicine
DX: K57.92 Diverticulitis of intestine, part unspecified, without perforation or abscess without bleeding (principal); N17.9 Acute kidney failure, unspecified; E11.65 Type 2 diabetes mellitus with hyperglycemia; E87.6 Hypokalemia; F17.200 Nicotine dependence, unspecified, uncomplicated